=== PATIENT | female | born 2000 | race Caucasian/White ===

== ENCOUNTER 2024-06-24 09:30 | Emergency (ER) | payer BC, SELFPAY ==
--- NOTE | ~2024-06-24 | XR_ITS ---
EXAMINATION: XR CHEST 2 VIEW CLINICAL INFORMATION: Productive cough COMPARISON: None TECHNIQUE: PA and lateral views of the chest obtained. FINDINGS: The lungs are clear. There are no pleural effusions. The cardiomediastinal silhouette is normal. Dextroconvex thoracolumbar scoliosis is noted. XR/XR chest 2V IMPRESSION: No active cardiopulmonary disease. Electronically signed by: Jagdish Fernández MD 06/24/2024 11:54 AM [facility]
[2024-06-24 09:55] VITALS: BP 136/82; PULSE 128; RESP 16; TEMP 37; O2SAT 98; BMI 27.1
[2024-06-24 10:29] LABS: MANUAL DIFF FLAG NO
[2024-06-24 10:35] LABS: Basophils Absolute Auto 0.1 X10*3/uL (0.0-0.2); Basophils Percent Auto 0.5 % (0-2); Eosinophils Percent Auto 0.1 % (0-4); Hematocrit 41.9 % (37.0-47.0); Hemoglobin 14.2 g/dl (12.0-16.0); Imm Gran Abs Auto 0.04 X10*3/uL (0.00-0.03); Imm Gran Pct Auto 0.3 % (0.0-0.4); Lymphocytes Absolute Auto 1.2 X10*3/uL (1.2-4.9); Lymphocytes Percent Auto 9.6 % (20-40); Mean Corpuscular HGB Conc 33.9 g/dl (31.0-35.0); Mean Corpuscular Hemoglobin 27.6 pg (27.0-33.0); Mean Corpuscular Volume 81.4 fL (80.0-98.0); Mean Platelet Volume 9.9 fL (9.4-12.3); Monocytes Absolute Auto 0.9 X10*3/uL (0.1-1.2); Neutrophils Absolute Auto 10.5 x10*3/uL (2.0-8.3); Neutrophils Percent Auto 82.5 % (45-73); Platelet Count 253 X10*3/uL (160-400); Red Blood Count 5.15 X10*6/uL (4.20-5.50); Red Cell Distribution Width 12.1 % (11.0-16.0); White Blood Count 12.7 X10*3/uL (4.8-10.8)
[2024-06-24 10:39] LABS: IDNOW Serial# 08D9AD1C; Strep A Nucleic Acid Negative (Negative)
[2024-06-24 10:45] LABS: Alanine Aminotransferase 11 U/L (0-31); Albumin Level 4.2 g/dL (3.5-5.0); Alkaline Phosphatase 71 U/L (39-117); Anion Gap 12 (12-20); Aspartate Amino Transferase 14 U/L (5-31); Bilirubin Total 1.2 mg/dL (0.0-1.0); Blood Urea Nitrogen 7 mg/dL (9-16); Calcium 9.7 mg/dL (8.4-10.2); Carbon Dioxide 23 mmol/L (22-29); Chloride 107 mmol/L (96-108); Estimated Glomerular Filt Rate > 60; Glucose Random 89 mg/dL (60-115); Potassium 3.9 mmol/L (3.3-5.1); Sodium 138 mmol/L (135-145); Total Protein 7.6 g/dL (6.5-8.0)
--- NOTE | 2024-06-24 10:59 | ED.GENADULT ---
HPI - General Adult General Chief complaint: Upper Respiratory Symptoms Stated complaint: Fever/cough Time Seen by Provider: 06/24/24 10:48 Source: patient Mode of arrival: ambulatory Limitations: no limitations History of Present Illness ED Provider: Oumar Sparrow PA-C HPI narrative: 24 year old female with no significant PMH seen in the ED for concerns regarding 3 days of fever, productive cough, sore throat, headache, nausea, loss of appetite, and chest pressure. Reports no changes to medication or food prior to sx. No known sick contacts. Denies palpitations, SOB. Denies generalized weakness, vomiting, abdominal pain, diarrhea, constipation, rashes. MD complaint: flu like symptoms Onset (ago): day(s) (3) Location: head and chest Radiation: non-radiation Severity: moderate Quality: other (throat: sore/scratchy. chest: pressure (non pleuritic). ) Pain Consistency: constant Relieving factors: none Exacerbating factors: eating Associated symptoms: cough, fever/chills, headaches, loss of appetite and nausea/vomiting Treatments prior to arrival: none Related Data Allergies Allergy/AdvReac Type Severity Reaction Status Date / Time No Known Allergies Allergy Verified 06/24/24 09:57 [No Known Allergies*] Review of Systems Review of Systems: Yes all other systems are reviewed and are negative [facility] Social History Social History Smoked in Last 30 Days: No Use of substances other than those prescribed or required for medical reasons: No Advance Directives: No Advance Directives Information Provided: No Patient : No Physical Exam ED Vital Signs: Vital Signs - 24 hr 06/24/24 09:55 06/24/24 11:13 Temperature 98.6 F 98.6 F Pulse Rate 128 H 89 Respiratory Rate 16 16 Blood Pressure 136/82 109/78 Pulse Oximetry 98 98 Oxygen Delivery Method Room Air Room Air BMI result Body Mass Index 27.1 Appearance: Alert. Oriented X3. No acute distress. Head: normocephalic, atraumatic. Eyes: Pupils equal, round and reactive to light. ENT: Pharynx mildly erythematous. No tonsillar swelling or exudate. Neck: Normal inspection. Neck supple. CVS: Normal heart rate and rhythm. Pulses normal. Respiratory: No respiratory distress. Breath sounds normal. Abdomen: Soft, nondistended. Mild tenderness upon palpation to LLQ; no tenderness upon palpation to RUQ, LUQ, RLQ. +BS x4 Skin: Skin warm and dry. Normal skin color. Normal skin turgor. No rashes. Extremities: No lower extremity edema. No joint swelling. Neuro/psych: Oriented X 3. CN II-XII intact. Normal speech and cognition. Medical Decision Making Medical Decision Making [facility] Narrative: 24 year old female with no significant PMH seen in the ED for concerns regarding 3 days of fever, productive cough, sore throat, headache, nausea, loss of appetite, and chest pressure. Reports no changes to medication or food prior to sx. No known sick contacts. Denies palpitations, SOB. Denies generalized weakness, vomiting, abdominal pain, diarrhea, constipation, rashes. Initial VS with HR 128 in triage. no tachycardia on exam. repeat VS show HR 80s. Spo2 98%. nontoxic appearing. DDX: - pneumonia - strep pharyngitis - Covid/Flu/RSV - Acute bronchitis - sinusitis - Mononucleosis - Pericarditis - Allergic Rhinitis/Seasonal allergies Plan: - cxr, viral swab and labs all reassuring. sxs most likely due to viral process. discussed results and likely dx along with supportive care for treatment. discussed return precautions. stable for d/c home. Differential Diagnosis Differential Diagnoses: The differential diagnosis associated with the presentation includes as above Lab Data [facility] Lab Attestation statement: I reviewed the patient's lab results. mild leukocytosis, no significant metabolic derangment 06/24/24 10:23 06/24/24 10:23 Labs: Lab Results 06/24/24 06/24/24 Range/Units 10:23 11:19 WBC 12.7 H (4.8-10.8) X10*3/uL RBC 5.15 (4.20-5.50) X10*6/uL Hgb 14.2 (12.0-16.0) g/dl Hct 41.9 (37.0-47.0) % MCV 81.4 (80.0-98.0) fL MCH 27.6 (27.0-33.0) pg MCHC 33.9 (31.0-35.0) g/dl RDW 12.1 (11.0-16.0) % Plt Count 253 (160-400) X10*3/uL MPV 9.9 (9.4-12.3) fL Immature Gran % (Auto) 0.3 (0.0-0.4) % Neut % (Auto) 82.5 H (45-73) % Lymph % (Auto) 9.6 L (20-40) % Preble % (Auto) 7.0 (2-11) % Eos % (Auto) 0.1 (0-4) % Baso % (Auto) 0.5 (0-2) % Lymph # (Auto) 1.2 (1.2-4.9) X10*3/uL Preble # (Auto) 0.9 (0.1-1.2) X10*3/uL Eos # (Auto) 0.0 (0.0-0.4) X10*3/uL Baso # (Auto) 0.1 (0.0-0.2) X10*3/uL Abs Immat Gran (auto) 0.04 H (0.00-0.03) X10*3/uL Absolute Neuts (auto) 10.5 H (2.0-8.3) x10*3/uL Absolute Nucleated RBC 0.000 (0.0-0.012) X10*3/uL Nucleated RBC % (auto) 0.0 (0.0-0.2) /100WBC Sodium 138 (135-145) mmol/L Potassium 3.9 (3.3-5.1) mmol/L Chloride 107 (96-108) mmol/L Carbon Dioxide 23 (22-29) mmol/L Anion Gap 12 (12-20) BUN 7 L (9-16) mg/dL Creatinine 0.74 (0.5-1.4) mg/dL Estim Creat Clear Calc 132.0 Estimated GFR > 60 Random Glucose 89 (60-115) mg/dL Calcium 9.7 (8.4-10.2) mg/dL Total Bilirubin 1.2 H (0.0-1.0) mg/dL AST 14 (5-31) U/L ALT 11 (0-31) U/L Alkaline Phosphatase 71 (39-117) U/L Total Protein 7.6 (6.5-8.0) g/dL Albumin 4.2 (3.5-5.0) g/dL Urine Color Dark Yellow Urine Appearance Cloudy Urine pH 5.5 (5.0-9.0) Ur Specific Collins >= 1.030 H (1.005-1.025) Urine Protein 30 (1+) H (Neg-Trace) mg/dL Urine Glucose (UA) Negative (Negative) mg/dL Urine Ketones 80 (Negative) mg/dL Urine Blood Moderate (2+) H (Negative) Urine Nitrite Negative (Negative) Ur Leukocyte Esterase Moderate (2+) H (Negative) Urine RBC 3-5 H (0-2) /HPF Urine WBC 6-10 (0-5) /HPF Ur Squamous Epith Cells 6-10 (0-2) /HPF Ur Transition Epith Cell Present Ur Renal Epithelial Cell Present Urine Bacteria 2+ (None Seen) Hyaline Casts 0-2 (0-2) /LPF Urine Test NEGATIVE (NEGATIVE) Influenza Type A (PCR) NEGATIVE (Negative) Influenza Type B (PCR) NEGATIVE (Negative) RSV RNA Qual (PCR) NEGATIVE (Negative) SARS-CoV-2 RNA (RT-PCR) NEGATIVE (Negative) S. pyogenes GrpA KISHOR Negative (Negative) Independent Interpretation I performed an independent interpretation of an: Plain X-Ray Interpretation: cxr clear without focal infiltrate or effusion, scoliosis Radiology Impression Discussion of test interpretation with radiology: I have reviewed the radiologist's reading. Tests considered The following testing was considered but not selected: EKG and cardiac workup considered, less likely cardiac etiology given other symptoms Prescription Management I considered prescription management with: Pain Medication, Antiviral and Antibiotic Critical Care Time Critical Care Time Critical Care Time: No Discharge Plan Discharge Clinical Impression: Bronchitis Patient Disposition: Home, Self-Care Instructions: Acute Bronchitis (ED) Additional Instructions: your chest x-ray today was normal. Your lab work was reassuring. You tested negative for COVID, flu, RSV. Your symptoms most likely viral. Treatment is rest and supportive care. Recommend [id number] Mucinex 1200 mg 2 times a day for the next 5 days. This will help break up the mucus in your lungs and help you get it out easier. Rest and drink plenty of fluids. Take [id number] NyQuil and DayQuil as needed for your symptoms. Follow-up with your doctor. If you develop new or worsening symptoms call 911 or come back to the ER for further evaluation. Stand Alone Forms: Work/School Release Print Language: Azeri
[2024-06-24 11:05] LABS: Influenza A PCR NEGATIVE (Negative); Influenza B PCR NEGATIVE (Negative); Resp Syncy Virus RNA Qual PCR NEGATIVE (Negative); SARS COV2 PCR INHOUSE NEGATIVE (Negative)
[2024-06-24 11:13] VITALS: BP 109/78; PULSE 89; RESP 16; TEMP 37; O2SAT 98
[2024-06-24 11:28] LABS: Appearance Urine Cloudy; Color Urine Dark Yellow; Glucose Urine UA Negative (Negative); Leukocyte Esterase Urine Moderate (2+) (Negative); Nitrite Urine Negative (Negative); PH 5.5 (5.0-9.0); Specific Gravity - Urine >= 1.030 (1.005-1.025); UMIC TRIGGER UACC YES; UPreg QC Valid YES; Urine Blood Moderate (2+) (Negative); Urine Ketones 80 mg/dL (Negative); Urine Pregnancy NEGATIVE (NEGATIVE); Urine Protein 30 (1+) mg/dL (Neg-Trace)
[2024-06-24 11:46] LABS: Bacteria Urine 2+ (None Seen); Hyaline Casts Urine 0-2 /LPF (0-2); Renal Epithelial Cells Urine Present; Transitional Epi Cells Urine Present; UACC Culture Trigger YES
[2024-06-24 12:32] VITALS: BP 109/78; PULSE 89; RESP 16; TEMP 37; O2SAT 98
== END 2024-06-24 12:32 | disposition home or self-care (01) ==
PROVIDERS: Emergency Provider Emergency Medicine Emergency Medical Services
DX: J40 Bronchitis, not specified as acute or chronic (principal); R50.9 Fever, unspecified; J02.9 Acute pharyngitis, unspecified; R05.9 Cough, unspecified; Z03.818 Encounter for observation for suspected exposure to other biological agents ruled out
CPT/HCPCS: 0241U; 71046; 80053; 81001; 81025; 85025; 87086; 87147; 87651; 99283; 99284